=== PATIENT | female | born 1980 | race Caucasian/White ===

== ENCOUNTER 2022-11-16 12:54 | Outpatient (CLI) | payer OTHER, SELFPAY | END 2022-11-16 12:55 | disposition home or self-care (01) | PROVIDERS: PCP Emergency Medicine; Visit Provider Emergency Medicine | DX: R63.5 Abnormal weight gain (principal); R73.09 Other abnormal glucose; R10.9 Unspecified abdominal pain; R43.2 Parageusia | CPT/HCPCS: 80053; 82607; 84443 ==